=== PATIENT | male | born 1950 | race Caucasian/White ===

== ENCOUNTER → 2016-08-30 | Outpatient (CLI) | payer MEDICARE, OTHER ==
--- NOTE | 2016-08-30 12:08 | MRI ---
EXAM DESCRIPTION: MRI of the cervical spine CLINICAL HISTORY: RADICULOPATHY COMPARISON: August 2015. TECHNIQUE: Multiplanar MRI of the cervical spine was performed without contrast. GENERAL The dens is unremarkable. Craniocervical and atlantoaxial junctions are unremarkable. There is grade 1 anterolisthesis of C3 on C4 of approximately 3 mm. Marrow signal is unremarkable. Prevertebral soft tissues are unremarkable. C2-3 The midline diameter of the spinal canal is narrowed to 9 mm due to ligamentum flavum buckling and a 3 mm broad-based posterior disc protrusion. No cord contact. Mild right neural foraminal narrowing from facet degeneration. The left neural foramen is unremarkable. C3-4 Severe left facet degeneration. Mild right facet degeneration. There is moderate left and mild right neural foraminal narrowing. Asymmetric to the left broad-based posterior disc osteophyte complex. The midline diameter of the spinal canal is adequate at 1.4 cm. C4-5 Severe right facet degeneration. No spinal canal or neural foraminal narrowing. C5-6 3 mm broad-based posterior disc osteophyte complex. Uncovertebral joint hypertrophy noted bilaterally. Mild bilateral neural foraminal narrowing. The midline diameter of the spinal canal is adequate at 1.2 cm. C6-7 4 mm broad-based posterior disc protrusion. Minimal cord contact without indentation noted. The midline diameter of the spinal canal is adequate at 11 mm. Mild bilateral neural foraminal narrowing from facet and uncovertebral joint hypertrophy. C7-T1 No significant findings. CORD AND INTRASPINAL No cervical cord or intraspinal lesions. IMPRESSION: Today's exam is essentially unchanged when compared to prior from August 2015. There remains grade 1 anterolisthesis of C3 on C4 due to severe facet degeneration on the left. Spinal canal narrowing is noted at C2-C3 due ligamentum flavum buckling and a broad-based posterior disc bulge. Cord contact without myelomalacia noted at C6-C7. Multilevel neural foraminal narrowing noted. Electronically signed by: Jose Eduardo Gong MD 08/30/2016 12:06
== END ==
LOC: MRI 08:54
PROVIDERS: ATTEND Family Medicine
DX: M54.12 Radiculopathy, cervical region (principal); M43.12 Spondylolisthesis, cervical region; M12.88 Other specific arthropathies, not elsewhere classified, other specified site

== ENCOUNTER → 2016-09-14 | Outpatient (CLI) | payer MEDICARE, OTHER ==
--- NOTE | 2016-09-14 10:30 | RAD ---
EXAM DESCRIPTION: XR SHOULDER 2 OR MORE VIEWS CLINICAL HISTORY: 66 y/o ,M, PAIN COMPARISON: None. IMPRESSION: Glenohumeral joint appears unremarkable peer mild degenerative change of the acromioclavicular joint. No definitive fracture noted. No shoulder dislocation. Electronically signed by: Jose Eduardo Gong MD 09/14/2016 10:29
== END ==
LOC: RAD 08:01
PROVIDERS: ATTEND Orthopaedic Surgery
DX: M25.511 Pain in right shoulder (principal); M12.811 Other specific arthropathies, not elsewhere classified, right shoulder

== ENCOUNTER → 2017-02-02 | Outpatient (CLI) | payer MEDICARE, OTHER ==
--- NOTE | 2017-02-05 11:48 | MRI ---
EXAM DESCRIPTION: MRI right shoulder CLINICAL HISTORY: Shoulder pain. Rotator cuff tear COMPARISON: None. TECHNIQUE: Multiplanar, multisequence MR images of the right shoulder FINDINGS: Complete supraspinatus tendon tear retracted to the glenohumeral joint level. Muscle volume is severely atrophic with grade 2 fatty infiltration Contiguous full-thickness tear of the anterior infraspinatus tendon with tendinosis of the remaining tendon insertion. Muscle volume loss is moderate with grade 2 fatty infiltration. Teres minor tendon and muscle are normal. Subscapularis tendinosis with tendon thinning. Marrow coracohumeral interval of about 5 mm predisposing to coracoid impingement of the subscapularis tendon. Mild muscle volume loss and grade 1 fatty filtration Severe attritional tendinosis/high-grade partial tear biceps tendon in the bicipital groove. Only a few thin fibers remain intact. The majority of the tendon is retracted below the bicipital groove seen on sagittal series 401 image 12. The intra-articular tendon is thickened with abnormal intratendinous signal. The labral anchor and superior labrum are intact. Labral degeneration with blunting of the periphery of the labrum and high signal intensity on T2 fat-saturated images along the base of the labrum seen on coronal images. No acute labral detachment No high-grade glenohumeral chondrosis or focal osteochondral lesion Glenohumeral joint effusion and subacromial subdeltoid fluid with mild synovitis. 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 A subtle irregular linear signal abnormality surrounded by edema best appreciated on the coronal T1 and T2-weighted images. The appearance is that of a chronic stress/insufficiency fracture. 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 Delamination and retraction of the majority of the tendon below the bicipital groove Abnormal junction of the base of the acromion with the spine of the scapula the appearance of which suggests chronic stress/insufficiency fracture Electronically signed by: Brandon Ospina MD 02/05/2017 11:48 AM CDT Workstation: [id number]
== END | disposition home or self-care (01) ==
LOC: MRI 07:49
PROVIDERS: ATTEND Orthopaedic Surgery
DX: M75.101 Unspecified rotator cuff tear or rupture of right shoulder, not specified as traumatic (principal)